=== PATIENT | male | born 1955 | race Caucasian/White ===

== ENCOUNTER 2022-09-25 06:08 | Day surgery (SDC) | payer BC ==
[2022-09-23 14:35] VITALS: BMI 27.9
[2022-09-25] MEDS ORDERED: Bupivacaine PF 0.5% 30 ML VIAL ONE (06:51)
[2022-09-25] MEDS ORDERED: EPINEPHrine 1 MG/ML AMP ONE (06:51)
[2022-09-25] MEDS ORDERED: Lidocaine 2% 6 ML SYR ONE ×2 (06:52→08:31)
[2022-09-25] MEDS ORDERED: CEFAZOLIN 2 GM VIAL ONE (07:50)
[2022-09-25] MEDS ORDERED: PROPOFOL 20 ML ONE (07:54)
[2022-09-25] MEDS ORDERED: Fentanyl 100 MCG/2 ML VIAL ONE (07:54)
[2022-09-25] MEDS ORDERED: Ondansetron PF 4 MG/2 ML Vial ONE (08:16)
[2022-09-25] MEDS ORDERED: Dexamethasone 20 MG/5 ML VIAL ONE (08:16)
[2022-09-25] MEDS ORDERED: Glycopyrrolate 0.2 MG/ML 5 ML SYRINGE ONE (08:23)
[2022-09-25] MEDS ORDERED: Ketorolac Tromethamine 30 MG/ML VIAL ONE (08:29)
[2022-09-25] MEDS ORDERED: Acetaminophen 325 MG TAB PO PRN (08:54)
[2022-09-25] MEDS ORDERED: HYDROcodone/Acetaminophen 5/325 mg Tablet PO PRN (08:54)
== END 2022-09-25 10:10 | disposition home or self-care (01) ==
LOC: CSHSDC 06:08
PROVIDERS: ATTEND Surgery
PROC: 06BY0ZC Excision of Hemorrhoidal Plexus, Open Approach (ICD-10-PCS; principal; 2022-09-25)
PROC: 06LY0CC Occlusion of Hemorrhoidal Plexus with Extraluminal Device, Open Approach (ICD-10-PCS; principal; 2022-09-25)
DX: K64.8 Other hemorrhoids (principal); K64.4 Residual hemorrhoidal skin tags; I10 Essential (primary) hypertension; E78.5 Hyperlipidemia, unspecified; M19.90 Unspecified osteoarthritis, unspecified site; Z79.82 Long term (current) use of aspirin; Z79.899 Other long term (current) drug therapy; Z87.891 Personal history of nicotine dependence; Z98.890 Other specified postprocedural states
CPT/HCPCS: 88304; J0171; J1100; J1885; J2405; J2704; J3010; S0020